=== PATIENT | female | born 2005 | race Caucasian/White ===

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

== ENCOUNTER 2025-01-19 23:16 | Emergency (ER) | payer OTHER, SELFPAY ==
--- NOTE | 2025-01-19 23:23 | US_ITS ---
PROCEDURE INFORMATION: Exam: US Pelvis, Transvaginal, Non-Obstetric Exam date and time: 01/19/2025 11:27 PM Age: 19 years old Clinical indication: Pelvic pain; Additional info: Severe left pelvic post-coital pain TECHNIQUE: Imaging protocol: Real-time transvaginal pelvic (non-obstetric) ultrasound with image documentation. Transvaginal imaging was used for better evaluation of the endometrium, adnexa, and/or cervix. COMPARISON: US TRANSVAGINAL 06/23/2023 5:48 AM FINDINGS: Uterus: Uterus measures 8.9 x 4.4 x 5.8 cm. Anteverted. No uterine mass. Endometrial stripe measures 1.3 cm with a secretory phase appearance. Cervical nabothian cyst is noted. Right ovary/adnexa: 3.7 x 2.6 x 2.1 cm. Normal follicles. There is flow to the right ovary. Left ovary/adnexa: 3.3 x 2.8 x 3.5 cm. Normal follicles. Question an involuted corpus luteum cyst. There is flow to the left ovary. Urinary bladder: Not assessed. Intraperitoneal space: Small free fluid. IMPRESSION: 1. No acute findings. 2. No evidence of ovarian torsion.
[2025-01-19 23:24] VITALS: BP 135/77; PULSE 104; RESP 18; TEMP 36.8; O2SAT 100; BMI 24.7
--- NOTE | 2025-01-19 23:29 | ED_ITS ---
Discharge Plan Disposition Patient Disposition: Home, Self-Care Prescriptions Prescriptions: No Action PNV no.95-ferrous fumarate-FA [] 28 mg iron- 800 mcg tablet 1 tab PO DAILY Qty: 90 0RF Referrals Follow up/Referrals: Jc Mejía MD [Primary Care Provider, Internal Medicine] - See instructions Activity Restrictions/Add. Instructions Additional Instructions/Restrictions: Please follow-up with your ROAD MACHINERY INSPECTOR. Please return to the emergency department if you develop any new or worsening symptoms or become concerned for your health. Clinical Impressions Clinical Impression: Pelvic pain Instructions Patient Instructions: DI for Acute Abdominal Pain Print Language Print Language: Slovak Discharge ED Provider: Federico Campoverde General Adult HPI General Chief complaint: Abdominal Pain Stated complaint: abd pain Time Seen by Provider: 01/19/25 23:20 History of Present Illness HPI narrative: 19-year-old female without significant past medical history presents for severe postcoital pelvic pain. She reports while they were having sex that she developed severe left-sided and central pelvic pain. Denies nausea or vomiting. Reports that this has happened before. Denies any vaginal bleeding, denies any discharge. Denies any concern for recent infection. Reports normal stool and urine output. Did not taken thing prior to arrival. No history of ovarian cyst or torsion. Not on control, last menstrual period 3 weeks ago. Related Data Previous Rx's ?Medication ?Instructions ?Recorded vit no.95-ferrous 1 tab PO DAILY #90 tabs 12/07 fumarate 28 mg-folic acid 800 mcg tablet () Allergies Allergy/AdvReac Type Severity Reaction Status Date / Time No Known Allergies Allergy Verified 12/29/24 09:17 [facility] Disclaimer: The information contained in this section may have been updated after the patient was seen, as this information can be updated by other users. Medical History (Updated 01/20/25 @ 01:53 by Federico Campoverde MD) Abnormal uterine bleeding (AUB) Status post normal vaginal delivery Active labor at term 40 weeks gestation of Screening for genetic disease carrier status Hyperemesis affecting , antepartum Herpes simplex of female genitalia Constipation Surgical History History of appendectomy Family History Other Asthma Cancer Diabetes FHx: mental illness Substance abuse Thyroid disorder Social History Smoking Status: Never smoker alcohol intake: never substance use type: marijuana current occupational status: unemployed Travel in the last 8 weeks?: None household members: family housing: house number of children: 0 Have you lived/traveled outside US in past 30 days?: No Contact w/someone who lives/traveled outside US past 30 days?: No Exposure to someone with infectious disease in past 14 days?: No Do you have a fever (greater than 100.4 F or 38 C)?: No Have you tested positive for COVID-19?: No Exposed to someone with COVID-19 in past 14 days?: No Do you have a sore throat?: No Do you have a cough?: No Do you have any weakness?: No Do you have any diarrhea?: No Are you experiencing any unusual bleeding?: No Do you have any muscle aches/pain?: No Do you have any abdominal pain?: Yes Are you experiencing loss of taste or smell?: No Other Medical History Have you received the Flu Vaccine for this season: No Have you received the Pneumonia Vaccine: No ROS Obtained: Yes All systems reviewed & no additional complaints except as documented Physical Exam General General appearance: alert and in no apparent distress Head Head exam: atraumatic and normocephalic Eye Eye exam: Present normal appearance, PERRL and EOMI ENT ENT exam: Present normal oropharynx and normal external ear exam Neck Neck exam: Present normal inspection and full ROM Chest Chest inspection: Present normal inspection and symmetric chest wall rise; Absent tenderness Respiratory Respiratory exam: Present normal lung sounds bilaterally; Absent respiratory distress Cardiovascular Cardiovascular exam: Present regular rate and normal rhythm Abdominal Exam Abdominal exam: Present soft and tenderness (Left lower quadrant); Absent distention or guarding Extremities Exam Extremities exam: Present normal inspection; Absent edema or joint swelling Back Exam Back exam: Present normal inspection; Absent tenderness Neurological Exam Neurological exam: Present alert and oriented X3; Absent motor sensory deficit Psychiatric Psychiatric exam: Present normal affect and normal mood Skin Skin exam: Present warm, dry and normal color Lymphatic Lymphatic Findings: no adenopathy Medical Decision Making Medical Records Medical records reviewed: Yes I reviewed the patient's medical records. Screening: Per USPSTF and CDC recommendations, given the prevalence of disease in our region, it is our hospital?s policy to screen for HIV and viral Hepatitis for all patients aged 18 and over and those with ongoing risk factors. Robert Inquiry Pt receiving controlled substance: No Robert was queried for this patient: No Vital Signs: 01/19/25 23:24 01/20/25 01:56 Temperature 98.3 F 97.9 F Temperature Source Oral Oral Pulse Rate 86 Pulse Rate [Left Radial] 104 H Respiratory Rate 18 18 Blood Pressure 102/56 L Blood Pressure [Right Arm] 135/77 Blood Pressure Mean [Right Arm] 96 Blood Pressure Source [Right Arm] Automatic Cuff Blood Pressure Position [Right Arm] Sitting 02 Sat by Pulse Oximetry 100 Oxygen Delivery Method Room Air Room Air Lab Data Lab results reviewed: Yes I reviewed the patient's lab results. Lab Results 01/19/25 23:30: Serum HCG, Qual Negative, HCV Ab ANGI w/Rflx PCR Qn Negative, HIV Ag/Ab Combo Qual Negative 01/20/25 01:36: Urine Color Yellow, Urine Appearance Clear, Urine pH 6.5, Ur Specific [place] 1.010, Urine Protein Negative, Urine Glucose (UA) Negative, Urine Ketones Negative, Urine Blood Negative, Urine Nitrate Negative, Urine Bilirubin Negative, Urine Urobilinogen 0.2, Ur Leukocyte Esterase Negative Orders (Tests/Meds): ED MEDICATIONS Discontinued Medications Generic Name Dose Route Start Last Admin Trade Name Freq PRN Reason Stop Dose Admin Acetaminophen 1,000 mg 01/19/25 23:23 01/20/25 00:09 Acetaminophen 500mg Tab PO 01/19/25 23:24 1,000 mg ONCE ONE Administration ORDERS Category Date Time Status US transvaginal Stat Exams 01/19/25 23:23 Completed HCG Qualitative, Serum Stat Lab 01/19/25 23:30 Completed HIV Combo Stat Lab 01/19/25 23:30 Completed Hepatitis C Ab Qual. W/ RFX Stat Lab 01/19/25 23:30 Completed UA [Urinalysis and Microscopic] Stat Lab 01/20/25 01:36 Results Urine Chlam/Gono/Trich, JONH Stat Lab 01/19/25 23:24 Received Medical Decision Narrative: 19-year-old female presents with severe left pelvic postcoital abdominal pain. History was obtained via interactive discussion with patient, chart review. On arrival, patient is [afebrile, hemodynamically stable, satting appropriately, alert, oriented x4, GCS 15], moving all extremities spontaneously. Full physical exam performed and significant for left pelvic tenderness Differential includes but is not limited to ovarian torsion, ruptured ovarian cyst, ectopic , mittelschmerz, endometriosis, vaginal trauma. Patient was given Tylenol for symptomatic management and correction of underlying abnormalities. Workup initiated including UA, urine , transvaginal ultrasound to assess for torsion. On re-evaluation, patient trae hemodynamically stable. Reports symptomatic improvement. Laboratory workup independently interpreted by me and significant for negative test, urine without evidence of infection. Imaging independently interpreted by me and significant for no evidence of ovarian torsion, cyst, ectopic . See radiology read for full review of final results. CT imaging was considered, but deemed unnecessary due to negative ultrasound, history and physical exam.. Given patient history, exam and workup, patient's presentation most likely rep resents postcoital pain of uncertain etiology. No bleeding to suggest traumatic injury. Normal ultrasound. Low concern for emergent pathology at this time. Patient was discharged in stable condition, encouraged to follow-up with [facility] INSPECTOR if symptoms recur. Procedures Risk/Benefits of Procedure(s) Were Explained: Yes Critical Care Critical Care Time Critical Care Time: No
--- OUTSIDE RECORDS SUMMARY | 2025-01-19 23:34 | XMS_ITS | Clinical Summary ---
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 Name Role Phone Unavailable Primary Care Provider [...] 06/23/2023 5:2 2 PM EST Growth Chart: [facility] (Girls, 2- 20 Years) Plan of Treatment Health Maintenance Due Date Last Done Comments [facility]-Depression Screening 2005 [facility]-Infant/Child/Adol SDOH Screenings 2005 Fluoride Varnish 2005 HPV Vaccines (1 - 3-dose series) 02/29/2020 [facility]- SDOH Screenings 2023 [facility]-Adult SDOH Screenings 2023 [id number] Vaccine ( season) 2024 [facility]-Influenza Vaccine (#1) 2025 05/24/2013 [facility]-DTaP,Tdap,and Td Vaccines (8 - [...] Reactive Non Reactive 06/23/2023 7:29 PM EST [facility] Comment:Screening for HIV 1 & 2 antibodies, and P24 antigen is NONREACTIVE. No confirmatory testing is required. Blood Venous blood specimen / Unknown Venipuncture / Unknown 06/23/2023 5:55 PM EST 06/23/2023 6:48 PM EST us Eliecer Oneal MD LAB BLOOD ORDERABLES Final R esult Performing Organization Address City/[facility] Co de Phone Number [facility] [address] [place] [address] * Hepatitis C Antibody - ED (06/23/2023 5:55 PM EST) Hepatitis C Antibody Negative Negative 06/23/2023 7:29 PM EST [facility] Blood Venous blood specimen / Unknown Venipuncture / Unknown 06/23/2023 5:55 PM EST 06/23/2023 6:48 PM EST Eliecer Oneal MD LAB BLOOD ORDERABLES Final R esult Performing Organization Address City/[facility] Co de Phone Number [facility]ARE [facility] [address] [place] [address] from Last 3 Months or Most Recently Relevant to Health Maintenance Insurance [facility] MEDICAID
[2025-01-19 23:58] LABS: HCG Qualitative, Serum Negative (Negative)
[2025-01-20] MEDS: ACETAMINOPHEN 500MG TAB 1000 MG PO (00:09)
[2025-01-20 00:39] LABS: Hepatitis C Ab Qual. W/ RFX NEGATIVE (Negative)
[2025-01-20 01:40] LABS: Microscopic, Urine URINE MICROSCOPIC (MICROSCOPIC)
[2025-01-20 01:45] LABS: Bilirubin,Urine Negative (Negative); Color,Urine YELLOW (Yellow); Glucose,Urine (UA) Negative (Negative); Ketones,Urine Negative (Negative); Leukocyte Esterase,Urine Negative (Negative); PH,Urine 6.5 (5.0-8.5); Protein,Urine Negative (Negative); Specific Gravity, Urine 1.010 (1.005-1.030); Urobilinogen,Urine 0.2 EU/dl (0.2)
[2025-01-20 01:56] VITALS: BP 102/56; PULSE 86; RESP 18; TEMP 36.6; O2SAT 99
[2025-01-20 02:08] LABS: Bacteria,Urine Trace /lpf; Squamous Epithelial Cell,Urine Occasional #/hpf (0-5)
== END 2025-01-20 02:04 | disposition home or self-care (01) ==
PROVIDERS: Emergency Provider Emergency Medicine; PCP Internal Medicine Adolescent Medicine
DX: R10.2 Pelvic and perineal pain (principal)
CPT/HCPCS: 76830; 81001; 84703; 86803; 87389; 87491; 87591; 87661; 99284